=== PATIENT | male | born 1960 | race Caucasian/White ===

== ENCOUNTER 2020-08-19 16:13 | Emergency (ER) | payer BC ==
[~2020-08-19] VITALS: Ht 175.3 cm; Wt 129.5 kg
[2020-08-19 16:22] VITALS: TEMP 99.5
[2020-08-19] MEDS ORDERED: LIPITOR20 MG PO (16:36)
[2020-08-19] MEDS ORDERED: PROZAC40 MG PO (16:36)
[2020-08-19] MEDS ORDERED: VALTREX 50500 MG/TAB PO (16:37)
[2020-08-19] MEDS ORDERED: ASPIRIN 81M81 MG/TA2 PO (16:37)
[2020-08-19] MEDS ORDERED: ZYRTEC5 MG PO (16:37)
[2020-08-19] MEDS ORDERED: ZITHROMAX Z PA250 MG PO ×2 (16:43→17:00)
[2020-08-19 17:10] VITALS: BP 148/84; PULSE 81
== END 2020-08-19 17:10 | disposition home or self-care (01) ==
LOC: COL.ER 16:13
DX: J06.9 Acute upper respiratory infection, unspecified (principal); E78.5 Hyperlipidemia, unspecified; F32.9 Major depressive disorder, single episode, unspecified; Z88.1 Allergy status to other antibiotic agents; Z79.82 Long term (current) use of aspirin; Z79.899 Other long term (current) drug therapy